=== PATIENT | male | born 1975 | race Caucasian/White ===

== ENCOUNTER 2024-01-18 20:17 | Emergency (ER) | payer OTHER ==
[2024-01-18] MEDS ORDERED: Ketorolac Tromethamine 30 MG (1 mL) VIAL ONE (20:42)
[2024-01-18 20:48] LABS: Hematocrit 49.7 % (42.0-52.0); Hemoglobin 16.8 g/dL (14.0-18.0); Mean Corpuscular HGB CONC 33.8 g/dL (32.0-36.0); Mean Corpuscular Hemoglobin 30.1 pg (27.0-31.0); Mean Corpuscular Volume 89.1 fl (78.0-98.0); Mean Platelet Volume 8.1 fL (7.4-10.4); Platelet Count 113 10x3/uL (130-400); RBC Distribution Width 11.9 % (11.5-14.5); Red Blood Cell (RBC) Count 5.59 mill/uL (4.70-6.10); White Blood Cell (WBC) Count 8.9 10x3/uL (4.8-10.8)
[2024-01-18 21:12] LABS: #Basophils 0.1 thou/uL (0.0-0.2); #Eosinphils 0.4 thou/uL (0.0-0.7); #Lymphocytes 2.8 thou/uL (1.20-3.40); #Monocytes 0.7 thou/uL (0.11-0.59); #Neutrophils 4.9 thou/uL (1.40-6.50); %Basophils 1.6 % (0.0-1.0); %Eosinophils 4.1 % (0.0-10.0); %Lymphocytes 31.4 % (21.0-51.0); %Neutrophils 54.8 % (42.0-75.0); MDiff Complete? YES
[2024-01-18 21:26] LABS: ALT (SGPT) 33 U/L (8-55); AST (SGOT) 27 U/L (5-34); Albumin 4.1 g/dL (3.5-5.0); Alkaline Phosphatase 67 U/L (40-110); Anion Gap 16 mmol/L (10-20); BUN (Urea Nitrogen) 18 mg/dL (8.9-20.6); Bilirubin, Total 0.4 mg/dL (0.2-1.2); Calc. Creatinine Clearance 0 mL/min (70-130); Calcium 10.8 mg/dL (7.8-10.44); Carbon Dioxide 22 mmol/L (22-29); Chloride 105 mmol/L (98-107); Estimated GFR 101; Globulin 2.7 g/dL (2.4-3.5); Glucose 130 mg/dL (70-105); Potassium 3.5 mmol/L (3.5-5.1); Protein, Total 6.8 g/dL (6.0-8.3); Sodium 139 mmol/L (136-145)
[2024-01-18 21:28] LABS: Troponin I Less than 0.010 ng/mL (< 0.028)
== END 2024-01-18 21:42 | disposition home or self-care (01) ==
LOC: BURERS 20:17
DX: R07.89 Other chest pain (principal); K29.70 Gastritis, unspecified, without bleeding
CPT/HCPCS: 36415; 71045; 80053; 84484; 85025; 85379; 93005; 96372; J1885